=== PATIENT | female | born 2005 | race Caucasian/White ===

== ENCOUNTER 2024-12-11 09:07 | Day surgery (SDC) | payer OTHER ==
[~2024-12-11] VITALS: Ht 162.6 cm; Wt 71.3 kg
[2024-12-11] VITALS (12 sets, daily range): BP systolic 107–126; BP diastolic 65–87
[~2024-12-11 09:07] MED LIST: AMOX50SU PO; CODACEE120 PO; DIPH12.5EL PO; Dexamethasone Sod Phos 10 MG/ML 1ML VIAL ONE; FentaNYL Citrate 50 MCG/ML 2 ML Injection ONE; Ondansetron HCl 2 MG / ML 2ML Vial ONE; RANI150EL PO; Rocuronium Bromide 10 MG/ML 5ML Injection IV ONE; Sugammadex Sodium 200 MG/2ML SDV (100 MG/ML) ONE
[2024-12-11] MEDS ORDERED: Bupivacaine 0.5% HCl 5 MG/ML 30MLVIAL ONE (10:41)
[2024-12-11] MEDS ORDERED: Bupivacaine 0.5% W/EPI 1:200000 SDV 30 ML Vial ONE (10:44)
[2024-12-11] MEDS ORDERED: CeFAZolin Sodium 2,000 MG in NS 100 ML IV SCH (10:50)
[2024-12-11] MEDS ORDERED: Albuterol 2.5 MG/3 ML VIAL INH PRN (11:45)
[2024-12-11] MEDS ORDERED: LORazepam 2 MG/ML 1ML Injection IV PRN (11:45)
[2024-12-11] MEDS ORDERED: FentaNYL Citrate 50 MCG/ML 2 ML Injection IV PRN ×2 (11:45→11:50)
[2024-12-11] MEDS ORDERED: Ondansetron HCl 2 MG / ML 2ML Vial IV PRN (11:50)
[2024-12-11] MEDS ORDERED: HydrALAZINE HCl 20 MG / ML 1ML Vial IV PRN (11:50)
[2024-12-11] MEDS ORDERED: HYDROmorphone HCl/Pf 1MG SYR IV PRN ×2 (11:50)
[2024-12-11] MEDS ORDERED: Rocuronium Bromide 10 MG/ML 5ML Injection IV ONE (12:23)
[2024-12-11] MEDS ORDERED: Phenylephrine HCl 100 MCG/ML-NS 10MLSYR (1MG/10ML) ONE (12:23)
--- NOTE | 2024-12-11 12:39 | NUR ---
12/11/24 Samantha Tay WHILE PREPPING ABDOMEN, TWO RED SPOTS WITH A HIVE IN THE CENTER APPEARED
[2024-12-11] MEDS ORDERED: HYDROmorphone HCl/Pf 1MG SYR ONE (13:58)
[2024-12-11] MEDS ORDERED: Ipratropium/Albuterol SulF 2.5-0.5MG/3 ML Amp INH ONE (16:25)
--- NOTE | 2024-12-11 16:25 | NUR ---
PT ON ROOM AIR. SATS DROPPING TO MID 80'S THEN QUICKLY RETURN TO MID 90'S. PATIENT DENIES LUNG DISEASE. LUNGS WITH RHONCHI BILATERALLY. ANESTHESIA NOTIFIED, ORDER FOR DUONEB GIVEN. PATIENT DENIES SOB OR DIFFICULTY BREATHING. ADVISED TO COUGH AND DEEP BREATH.
--- NOTE | 2024-12-11 16:27 | NUR ---
REPORT GIVEN TO MARCIE LOCKHART RN.
--- NOTE | 2024-12-11 17:05 | NUR ---
1645 DC INSTRUCTS GIVEN PT VERBALIZED UNDERSTANDING, SATS IMPROVED TO 97%
== END 2024-12-11 16:50 | disposition home or self-care (01) ==
LOC: ORSCMMR 09:07 → ORD 11:45 → ORSCMMR 11:45
PROVIDERS: Obstetrics & Gynecology
PROC: 8E0W4CZ Robotic Assisted Procedure of Trunk Region, Percutaneous Endoscopic Approach (ICD-10-PCS; principal; 2024-12-11 11:45)
PROC: 0UBF4ZX Excision of Cul-de-sac, Percutaneous Endoscopic Approach, Diagnostic (ICD-10-PCS; principal; 2024-12-11 11:45)
PROC: 0UB04ZX Excision of Right Ovary, Percutaneous Endoscopic Approach, Diagnostic (ICD-10-PCS; principal; 2024-12-11 11:45)
DX: R10.20 Pelvic and perineal pain unspecified side (principal); R93.89 Abnormal findings on diagnostic imaging of other specified body structures; D27.0 Benign neoplasm of right ovary; N80.329 Endometriosis of the posterior cul-de-sac, unspecified depth; F17.220 Nicotine dependence, chewing tobacco, uncomplicated
CPT/HCPCS: 88108; 88305; 88307; A9270; J0690; J1100; J1171; J2371; J2405; J2704; J3010; J7120